=== PATIENT | male | born 1950 ===

== ENCOUNTER 2022-10-24 08:34 | Day surgery (SDC) | payer MEDICARE, OTHER, SELFPAY ==
[2022-10-09 10:28] VITALS: BMI 24.0
[2022-10-24] VITALS (12 sets, daily range): BP systolic 82–135; BP diastolic 57–80; PULSE 60–81; RESP 16–24; TEMP 35.9–36.6; O2SAT 93–99; BMI 24.0
--- NOTE | 2022-10-24 07:13 | DI.RAD.S_ITS ---
PROCEDURE: XR HIP W PEL IF DONE LT 2V INDICATIONS: JOSEE, anterior TECHNIQUE: Multiple spot fluoroscopic intraoperative images of the left hip. COMPARISON: None. FINDINGS: Spot fluoroscopic intraoperative images demonstrate appropriate positions of total hip arthroplasty hardware. IMPRESSION: Intraoperative images demonstrate appropriate positions of orthopedic hardware. Approved by: Amish Galloway M.D. on 10/24/2022 at 20:55
[2022-10-24] MEDS: VANCOMYCIN 1,000 MG/200 ML PIGGYBACK 200 MG IV (09:17)
[2022-10-24] MEDS: ACETAMINOPHEN 325 MG TABLET 975 MG PO (09:17)
[2022-10-24] MEDS: LACTATED RINGERS 1,000 ML 42 ML IV ×2 (09:21→11:29)
--- NOTE | 2022-10-24 09:57 | PM.PREOP ---
Pre-operative Note Interval Note History & Physical reviewed/Exam performed by Physician: Yes Changes to H&P: No
--- NOTE | 2022-10-24 09:57 | PM.OP.1 ---
Operative Date/Time/Diagnoses Date of procedure: 10/24/22 Time of procedure: 10:20 Pre-op diagnosis: Severe left hip OA Post-op diagnosis: same Procedure & Clinicians Procedure: Left total hip arthroplasty anterior approach Same procedure as scheduled: Yes Indications: The patient has had progressively worsening left hip pain with radiographic changes consistent with arthritis. Non-operative management has failed and the patient has requested total hip replacement. The risks, benefits and alternatives to surgery were discussed with the patient prior to proceeding. Risks discussed included, but were not limited to, failure to relieve pain, leg length discrepancy, dislocation, stiffness, infection, nerve damage, deep venous thrombosis, pulmonary embolism, stroke, coma, heart attack, permanent paralysis and , as well as the potential need for eventual revision of the prosthetic. Surgeon: Libra Oliva Research Computing Specialist: Javier Killian Anesthesia Type: Spinal Operative Notes Findings: Severe left hip osteoarthritis, adequate bone, adequate stability Closure Type: primary Specimen(s): none sent Prosthetic devices, grafts, tissues, transplants, or devices: Oliva and nephew R3 size 58, neutral poly, polar lateral stem with collar size 1, 36+ 4 cobalt chromium head, one 6.5 mm screw Estimated Blood Loss (mL): 250 Blood products transfused: none Procedure in detail: The patient was brought to the operating room. Patient was carefully positioned in the supine position. Time-out was performed and antibiotics were given. Anesthesia was induced. He was positioned in the on the table in order to allow hyperextension of the hip. The left lower extremity was prepped and draped in a standard sterile fashion. An anterior left hip incision was made 1 fingerbreadth lateral to the anterior superior iliac spine and extended distally towards the greater trochanter. Dissection was carried out through skin and subcutaneous tissues. Superficial hemostasis was achieved. The fascia over the tensor fascia andrés was defined and incised with a knife. Two Allis clamps were used to grasp the fascia. Tensor fascia andrés was retracted laterally. A gelpi retractor was placed. Dissection was carried out down along the neck. The circumflex vessels were carefully identified and cauterized with the Aqua Mantis. A PA was used throughout the procedure and was critical for intraoperative positioning and safe implantation of the components as well as assisting with hemostasis. There was good visualization of the femoral neck. A Cobra was placed superior to the neck and the gluteus fibers were carefully stripped from that superior aspect of the capsule. A 2nd retractor was placed along the inferior aspect of the neck. The rectus insertion along the capsule was partially released. A 3rd retractor that was then gently placed over the rim of the acetabulum under the rectus. Capsule was carefully incised and released from the intertrochanteric line circumferentially superior to the mid sagittal line and inferiorly to the mid sagittal line until the lesser trochanter was palpable. A tag stitch was placed both in the superior and inferior limb of the capsular insertion. Along the acetabulum capsule was also released up to the mid sagittal 12:00 position. A portion of the labrum was resected. A saw was used to perform an osteotomy at the level of the intertrochanteric line and the junction of the superior femoral neck leaving approximately 1 finger breath of residual inferior neck above the lesser trochanter. A 2nd cut was made along the femoral neck at the base of the head and a napkin ring of neck was removed. Corkscrew was placed in the femoral head and the head was removed without difficulty. Retractors were then repositioned around the acetabulum. Residual labrum was resected and additional osteophytes were removed. A reamer that was 4 mm below the templated size was placed by hand in the acetabulum and it was reamed to centralize the acetabulum. It was then reamed up to 2 under the templated size and fluoroscopy was brought in to confirm the position of the reaming and depth of reaming. I reamed 1 under the anticipated size. A trial cup was placed and noted that it was appropriately sized and fluoroscopy confirmed position and depth. The component was open and inserted without difficulty fluoroscopic imaging was used to confirm that the cup had been adequately seated and was well positioned. It was further stabilized with a single screw. Neutral poly liner was placed. The cup was tested and noted to be stable. Attention was then directed to the femur. The femur was gently hyperextended additional capsular release was performed as needed in order to allow adequate visualization of the proximal femur with elevation of the femur. Patient was placed in a hyperextended slightly adducted position with maximum external rotation. Box osteotome was used to check for any residual neck as well as sclerotic bone along the trochanter. [place] pepper was placed in the femur. Additional broaching was performed. Canal finder was used to determine the alignment of the canal and position. Size 1 broach was placed. The canal was then appropriately broached up to the templated size as long as there was adequate stability of the broach and serial advancement of the broach without excessive impingement. Specific attention was directed at avoiding varus attempting to direct the distal aspect of the broach more anteriorly and avoiding excessive anteversion. Trial reduction showed acceptable range of motion, good stability, no posterior impingement, quaker of leg length and appropriate lateral shuck. I also hyperflexed the hip and checked that there was no impingement anteriorly and there was good stability with flexion, adduction and internal rotation. Marcaine and Exparel were injected. The stem was placed without difficulty. Repeat trial reduction and x-ray showed acceptable overall position, length, and no evidence of the femoral fracture. Final head was placed. Wound was meticulously irrigated with normal saline. The hip was reduced and additional Exparel and Marcaine were injected. The capsule was closed with interrupted nonabsorbable sutures. The fascia of the tensor was closed with interrupted and running Vicryl. No drain was placed. Any tensor fascia andrés muscle that appeared to be contused or injured which was a minimal amount was carefully resected. Capsule around the tensor was injected with Exparel and Marcaine. The skin was closed with barbed stitches for the subcutaneous tissue and skin. We also used surgical glue. The wound was dressed sterilely. Brief Betadine soak was also used and was meticulously irrigated with normal saline. Patient was transferred to recovery room in satisfactory condition. Complications: none Post-operative Condition: stable Disposition: Acute Care Plan for aftercare: The patient will be maintained on a standard total hip replacement protocol with weight bearing as tolerated and anterior hip precautions. The patient will receive Aspirin and sequential compression devices for DVT prophylaxis. The patient will be discharged home when safe for the home environment.
[2022-10-24] MEDS: TRANEXAMIC ACID 1,000 MG VIAL 2000 MG INJ (10:45)
[2022-10-24] MEDS: CEFAZOLIN 2 GM/100 ML PREMIX 100 ML IV ×2 (10:50→19:03)
--- NOTE | 2022-10-24 11:11 | SUR.OPER ---
Patient supine on padded [place] table, (right arm) one arm on padded arm board at <90, (left arm) other arm padded and secured with tape across patient's chest, both legs secured in padded traction boots and positioned per surgeon, bilateral feet also wrapped in cast padding and coban before placing feet into padded traction boots, padded post at patient's groin, pressure points checked and padded.
[2022-10-24] MEDS: BUPIVACAINE LIPOSOME 266 MG/20 ML VIAL INJ (11:19)
[2022-10-24] MEDS: BUPIVACAINE 0.25% (PF) 60 ML, EPINEPHrine 0.3 MG INJ (11:20)
--- NOTE | 2022-10-24 13:04 | DI.RAD.S_ITS ---
PROCEDURE: XR HIP W PEL IF DONE LT 2V INDICATIONS: LEFT ANTERIOR HIP TECHNIQUE: AP pelvis and lateral view of the left hip acquired. COMPARISON: [facility], PAMELA, XR HIP W PEL IF DONE LT 2V, 10/24/2022, 11:52. FINDINGS: Bones: Patient is status post left total hip arthroplasty, with hardware components in expected positions. The hip joint appears congruent. The visualized bony structures appear intact. Soft tissues: Overlying postoperative changes are noted. No suspicious soft tissue densities. IMPRESSION: Status post left hip arthroplasty with expected postoperative findings. Approved by: Amish Galloway M.D. on 10/24/2022 at 20:55
[2022-10-24] MEDS: IBUPROFEN 400 MG TABLET PO ×2 (15:20→21:15)
[2022-10-24] MEDS: ACETAMINOPHEN 325 MG TABLET 650 MG PO ×2 (15:20→21:15)
--- NOTE | 2022-10-24 15:28 | PT.IIE ---
Current Diagnoses Unilateral primary osteoarthritis, left hip (10/24/22) Surgery Performed Operation Date: 10/24/22 10:45 Actual Procedures p LEFT Total Hip Arthroplasty/Anterior Approach(Left) - Libra Oliva MD Surgical History (Last Updated 10/09/22 @ 11:17 by Geno Lundberg, RN) History of AAA (abdominal aortic aneurysm) repair (11/13/18) Hx of appendectomy (~1979) Hx of bilateral cataract extraction Hx of hernia repair Hx of tonsillectomy Medical History (Last Updated 10/24/22 @ 09:03 by Ha Valencia RN) AAA (abdominal aortic aneurysm) Aneurysm of left common iliac artery CAD (coronary artery disease) CKD (chronic kidney disease) COPD (chronic obstructive pulmonary disease) CVA (cerebral vascular accident) Hearing loss History of rheumatic fever as a child HLD (hyperlipidemia) Hypernatremia Hypokalemia Mild dilation of ascending aorta Myocardial infarct Pulmonary emphysema Physical Therapy Inpatient Evaluation/Re-Eval M1 PT/OT-IP Prior Functional Status Start: 10/24/22 17:12 Freq: NEEDED Status: Active Protocol: Document 10/24/22 15:28 AB (Rec: 10/24/22 17:30 AB [id number]) Medical Review Prior Functional Status Medical History Reviewed Yes Communication able to make needs known Mobility and Gait pt stated that he is modified independent with all mobilities and ambulation without AD but occasionally uses a FWW or SPC due to hip pain Social History Household Members spouse Living Arrangements House Number of Floors (Floors) One Floor Number of Stairs To Enter/Railing? 4 steps B rails from the front of the house to enter or 3 steps B rails from the back of the house Home Environment Tub/Shower Home Equipment Front Wheel Walker,Straight Cane,Shower Seat with Backrest ,Hand Held Shower,Grab Bars Near Toilet,Grab Bars In Shower Additional Social History Comment pt has an adjustable bed spouse stated that pt can use her daughter's walk in shower if needed who lives close by M2 PT-IP Current Condition Start: 10/24/22 17:12 Freq: NEEDED Status: Active Protocol: Document 10/24/22 15:28 AB (Rec: 10/24/22 17:30 AB [email or web address]) Physical Therapy Current Condition Current Condition Evaluation Date 06/20/23 Treatment Diagnosis s/p L JOSEE anterior approach; difficulty in walking Onset Date 10/24/22 M3 PT-IP Subjective Start: 10/24/22 17:12 Freq: NEEDED Status: Active Protocol: Document 10/24/22 15:28 AB (Rec: 10/24/22 17:30 AB [email or web address]) Subjective Physical Therapy Visit Type Type Initial Evaluation Visit Start Time 15:28 Visit Stop Time 17:10 Total Visit Minutes 103 Number of SWIM INSTRUCTOR Visits 0 Physical Therapy Visit Comments Patient Comments agreeable to do PT; wants to go home Therapy Pain Assessment Pain Present Pain Present Denied Pain M4 PT-IP Mobility and Gait Start: 10/24/22 17:12 Freq: NEEDED Status: Active Protocol: Document 10/24/22 15:28 AB (Rec: 10/24/22 17:30 AB [email or web address]) PT-Bed Mobility Assessment Supine to Sit Supine to Sit Standby Assistance Sit to Supine Sit to Supine Standby Assistance PT-Transfer Assessment Sit to and From Stand Sit to and from Stand Contact Guard Assistance, Minimal Assistance,1 Person Assistance,Use of Upper Extremities Equipment Transfer Assistive Device Gait Belt,Front Wheeled Walker Orthotic/Prosthetic Devices or Brace: No Comments Mobility Comments pt in bed and spouse in room. educated pt and spouse regarding anterior hip precautions. BP in supine: 133/70. pt completed supine<>sit SBA. repeated x 2. pt used BUE to move BLE to EOB on first attempt. educated pt on techniques and repeated bed mobility again without pt lifting BLE with UE SBA. completed sit to stand min A and cues. initial LOB in standing with increase leaning to the R. instructed pt to correct. pt started to have slight uncontrolled voiding. instructed pt to sit back down . prepared urinal. pt sit to stand again CGA and use urinal min A for standing balance. assisted pt with gown/sock change and brief management. completed sit to stand again CGA and ambulated in room using FWW min A and cues. repeated cues for hip precautions as pt tends to take big steps with RLE. pt seems to have slow processing of instructions. pt also demonstrated very slow paced gait with decrease KIRSTEN. pt stated that he wants to go home and wants to do stairs. caregiver training conducted. educated spouse on use of safety belt and how to assist pt. spouse was able to put safety belt on pt after a few tries. able to assist pt with sit to stand and ambulated pt towards the stairs and completed ~ 250 ft using fWW min A and cues. pt with occasional increase posterior trunk lean with slight LOB needing cues for correction and safety. educated pt and spouse for stair climbing techniques. pt completed up/down steps using B rails min A and initially needing max cues for techniques and safety but able to perform again on 2nd set with initial cues only and has carryover afterwards. spouse was able to assist pt with stair climbing. pt ambulated back to his room using FWW min A. increase R foot dragging and pt stated that this happens when he is tired. pt went back to bed. sit to supine x 2 attempts max cues for techniques. spouse was able to cues and assist as needed. positioned pt in bed. call light and table placed within reach. Gait Assessment Gait Gait Assistance Required: Minimum Assistance,1 Person Assist Distance (Feet) 200 Able to Maintain Weight Bearing Status Yes During Gait Assistive Devices Assistive Device Gait Belt,Front Wheeled Walker Orthotic/Prosthetic Devices or Brace: No Gait Deviations General Gait Pattern Decreased Stride Length, Decreased Feet Clearance, Narrow Based Gait Factors Limiting Gait Function Factors Limiting Gait Function Decreased Activity Tolerance, Decreased Strength,Difficulty Following Directions,Limited Range of Motion,Pain,Poor Balance,Poor Safety Awareness Stair Climbing Assessment Evaluation Level of Assist On Stairs Minimal Assistance,1 Person Assistance Devices Stair Climbing Assistive Devices Left Railing,Right Railing Technique/Endurance Stair Climbing Direction Ascend and Descend Stair Climbing Technique Step to Step Number of Steps Climbed 3 Query Text: Stair Climbing Set # Repetitions (reps) 2 PT-Balance Assessment Sitting Balance and Reactions Static Sitting Balance Ability Normal Dynamic Sitting Balance Ability Good Standing Balance and Reactions Static Standing Balance Ability Fair Dynamic Standing Balance Ability Fair Device Used FWW M5 PT-IP Objective Assessments Start: 10/24/22 17:12 Freq: NEEDED Status: Active Protocol: Document 10/24/22 15:28 AB (Rec: 10/24/22 17:30 AB [email or web address]) Orientation Orientation/Cognition Level of Alertness Alert Safety Awareness Decreased Safety Awareness Memory Description Short Term Impaired Comments pt seems to have slow processing of instructions and needed repeated cues Gross Range of Motion Lower Extremity ROM Assessment Within Functional Limits Strength Lower Extremity Strength Assessment Left Impaired Hip 3+/5 Knee 4-/5 Sensation Assessment Sensation Gross Sensation WNL Muscle Tone Muscle Tone WNL Yes M6 PT-IP Treatment Start: 10/24/22 17:12 Freq: NEEDED Status: Active Protocol: Document 10/24/22 15:28 AB (Rec: 10/24/22 17:30 [email or web address]) Physical Therapy Treatment Education Education Provided Precautions,Weight Bearing Status,Post-Op Packet,Safety M7 PT-IP Assessment and Plan Start: 10/24/22 17:12 Freq: NEEDED Status: Active Protocol: Document 10/24/22 15:28 AB (Rec: 10/24/22 17:30 [email or web address]) PT Summary Assessment and Plan Potential Rehabilitation Potential Fair Status of Condition at Evaluation Evolving Summary Impairments Pain,ROM,Strength,Balance, Coordination,Cognition,Bed Mobility,Transfers,Gait, Activity Tolerance Assessment Summary Pt s/p L JOSEE anterior approach POD 0. pt wanting to go home and caregiver training conducted. spouse was able to assist pt. pt stated that he has outpt PT set up. Pt may go home when medically stable. Pt currently is not complaining of pain but expecting to have more pain later tonight or tomorrow that most possibly affecting mobility. will continue to assess progress and mobility status. Goals Bed Mobility Goal Independent Transfer Goal Independent,Front Wheeled Walker Gait Goal Independent,Front Wheel Walker Gait Distance 300 Other Goals up/down 4 steps B rails SBA Days to Meet Goals 5 Frequency of Treatment Frequency Of Treatment Twice a Day Treatment Plan Physical Therapy Treatment Plan Bed Mobility Training,Transfer Training,Gait Training, Therapeutic Exercise,Balance Retraining,Post Op Education, Discharge Planning,Hot or Cold Pack,Neuromuscular Re-ed, Coordination Retraining,Manual Therapy Precautions Anterior Hip Precautions No Hip Extension,No Hip External Rotation Weight Bearing Status Weight Bearing Status Weight Bear as Tolerated Allowed Weight Bearing Amount (enter % LLE WBAT or #) (%) Recommendations To Nursing Amount of Assist Needed 1 Person Assist Discharge Recommendations PT Discharge Recommendations Home with 27/11 Assist Available,Outpatient PT Transportation Needs at Discharge Private Vehicle
--- NOTE | 2022-10-24 15:30 | PC.NURSE ---
1415 Patient brought up from PACU to room 216. Oriented to room and call light. VSS. Denies pain. Wiggling toes and moving feet, still with decreased sensation from spinal to lower extremities. Palpable pulses. Aquacel dressing to left hip surgical site is CDI. Call light placed within reach. Patient's at bedside. Continue to monitor.
[2022-10-24] MEDS: LACTATED RINGERS 1,000 ML 100 ML IV (17:48)
[2022-10-24] MEDS: OXYCODONE IR 5 MG TABLET PO (19:03)
[2022-10-24] MEDS: ASPIRIN EC 81 MG TABLET PO (21:14)
[2022-10-24] MEDS: ATORVASTATIN 20 MG TABLET 80 MG PO (21:14)
[2022-10-24] MEDS: MELATONIN 3 MG TABLET 9 MG PO (21:14)
[2022-10-24] MEDS: TAMSULOSIN 0.4 MG CAPSULE PO (21:14)
[2022-10-24] MEDS: lisinopriL 20 MG TABLET PO (21:14)
[2022-10-24] MEDS: DOCUSATE 100 MG CAPSULE PO (21:15)
[2022-10-24] MEDS: ISOSORBIDE MONONITRATE ER 30 MG TABLET PO (21:18)
[2022-10-24 23:49] LABS: Appearance Urine UA CLEAR; Bilirubin Urine UA NEGATIVE (NEGATIVE); Color Urine UA YELLOW; Glucose Urine UA NEGATIVE (Negative); Ketones Urine UA NEGATIVE (NEGATIVE); Leukocyte Esterase Urine UA NEGATIVE (NEGATIVE); Nitrite Urine UA NEGATIVE (Negative); Occult Blood Urine UA NEGATIVE (Negative); Protein Urine UA NEGATIVE (Negative); Urobilinogen Urine UA 0.2 E.U./dL (0.2)
[2022-10-25 00:13] VITALS: BP 99/58; PULSE 70; RESP 19; TEMP 36.4; O2SAT 93
[2022-10-25 03:09] VITALS: BP 107/60; PULSE 70; RESP 16; TEMP 36.1; O2SAT 93
[2022-10-25] MEDS: IBUPROFEN 400 MG TABLET PO ×4 (03:45→15:10)
[2022-10-25] MEDS: ACETAMINOPHEN 325 MG TABLET 650 MG PO ×3 (03:45→15:10)
[2022-10-25] MEDS: CEFAZOLIN 2 GM/100 ML PREMIX 100 ML IV (03:45)
[2022-10-25] MEDS: LACTATED RINGERS 1,000 ML 100 ML IV (03:53)
--- NOTE | 2022-10-25 05:17 | PC.NURSE ---
NOC Shift Note- Patient complained of burning and frequency with urination. Urine sample sen to lab, results WNL. Will continue to monitor.
[2022-10-25 05:45] LABS: Hematocrit 28.4 % (41-53)
[2022-10-25] MEDS: DOCUSATE 100 MG CAPSULE PO (08:26)
[2022-10-25] MEDS: AMLODIPINE 5 MG TABLET PO (08:26)
[2022-10-25] MEDS: SPIRONOLACTONE 25 MG TABLET PO (08:26)
[2022-10-25] MEDS: ASPIRIN EC 81 MG TABLET PO (08:26)
[2022-10-25 08:27] VITALS: BP 101/56; PULSE 66
[2022-10-25] MEDS: lisinopriL 20 MG TABLET PO (08:27)
[2022-10-25 08:39] VITALS: BP 101/56; PULSE 66; RESP 18; TEMP 36.8; O2SAT 93
--- NOTE | 2022-10-25 08:55 | PT.IPTN ---
Current Diagnoses Unilateral primary osteoarthritis, left hip (10/24/22) Surgery Performed Operation Date: 10/24/22 10:45 Actual Procedures p LEFT Total Hip Arthroplasty/Anterior Approach(Left) - Libra Oliva MD Physical Therapy Treatment Note M2 PT-IP Current Condition Start: 10/24/22 17:12 Freq: NEEDED Status: Active Protocol: Document 10/24/22 15:28 AB (Rec: 10/24/22 17:30 AB [id number]) Physical Therapy Current Condition Current Condition Evaluation Date 10/24/22 Treatment Diagnosis s/p L JOSEE anterior approach; difficulty in walking Onset Date 10/24/22 M3 PT-IP Subjective Start: 10/24/22 17:12 Freq: NEEDED Status: Active Protocol: Document 10/25/22 09:32 TS (Rec: 10/25/22 09:55 TS [id number]) Subjective Physical Therapy Visit Type Type Treatment Note Visit Start Time 08:55 Visit Stop Time 09:25 Total Visit Minutes 30 Number of FISH SKINNING MACHINE FEEDER Visits 1 Physical Therapy Visit Comments Patient Comments Pt found resting in bed, reports he is doing well and would like to get up the toilet, agreeable to PT. M4 PT-IP Mobility and Gait Start: 10/24/22 17:12 Freq: NEEDED Status: Active Protocol: Document 10/25/22 09:32 TS (Rec: 10/25/22 09:55 TS [id number]) PT-Bed Mobility Assessment Supine to Sit Supine to Sit Standby Assistance Sit to Supine Sit to Supine Standby Assistance Scooting Scooting to Edge of Bed Standby Assistance PT-Transfer Assessment Sit to and From Stand Sit to and from Stand Standby Assistance,1 Person Assistance,Use of Upper Extremities Equipment Transfer Assistive Device Gait Belt,Front Wheeled Walker Orthotic/Prosthetic Devices or Brace: No Comments Mobility Comments Pt found resting in bed, requesting to use toilet, recalled 1/2 hip precautions prior to surgery. Supine to sit with HOB elevated SBA, pt required extra time to bring LEs over EOB. He performed sit to stand x2 SBA with FWW, good posture in standing with no retroleaning. Pt used toilet could not have BM but did urinate. He ambulated in hallway ~300' SBA with emerging step thru gait, cued for heel toe contact, no buckling or LOB. He performed stairs x9 SBA with BUE handrail assist, provided cues for step sequencing. Pt was ambualted back to room, was left in chair with call light in reach, Rn notified. Gait Assessment Gait Gait Assistance Required: Standby Assistance Distance (Feet) 300 Able to Maintain Weight Bearing Status Yes During Gait Assistive Devices Assistive Device Gait Belt,Front Wheeled Walker Orthotic/Prosthetic Devices or Brace: No Gait Deviations General Gait Pattern Decreased Stride Length, Decreased Feet Clearance, Narrow Based Gait Factors Limiting Gait Function Factors Limiting Gait Function Decreased Strength,Limited Range of Motion,Pain,Poor Balance Comments Gait Comments See mobility comments. Stair Climbing Assessment Evaluation Level of Assist On Stairs Standby Assistance Devices Stair Climbing Assistive Devices Left Railing,Right Railing Technique/Endurance Stair Climbing Direction Ascend and Descend Stair Climbing Technique Step to Step Number of Steps Climbed 3 Stair Climbing Set # Repetitions (reps) 3 Comments Stair Climbing Comments See mobility comments. PT-Balance Assessment Sitting Balance and Reactions Static Sitting Balance Ability Normal Dynamic Sitting Balance Ability Good Standing Balance and Reactions Static Standing Balance Ability Good Dynamic Standing Balance Ability Good Device Used FWW M5 PT-IP Objective Assessments Start: 10/24/22 17:12 Freq: NEEDED Status: Active Protocol: Document 10/24/22 15:28 AB (Rec: 10/24/22 17:30 AB [id number]) Orientation Orientation/Cognition Level of Alertness Alert Safety Awareness Decreased Safety Awareness Memory Description Short Term Impaired Comments pt seems to have slow processing of instructions and needed repeated cues Gross Range of Motion Lower Extremity ROM Assessment Within Functional Limits Strength Lower Extremity Strength Assessment Left Impaired Hip 3+/5 Knee 4-/5 Sensation Assessment Sensation Gross Sensation WNL Muscle Tone Muscle Tone WNL Yes M6 PT-IP Treatment Start: 10/24/22 17:12 Freq: NEEDED Status: Active Protocol: Document 10/25/22 09:32 TS (Rec: 10/25/22 09:55 TS [id number]) Physical Therapy Treatment Education Education Provided Precautions,Weight Bearing Status,Post-Op Packet,Safety M7 PT-IP Assessment and Plan Start: 10/24/22 17:12 Freq: NEEDED Status: Active Protocol: Document 10/25/22 09:32 TS (Rec: 10/25/22 09:55 TS [id number]) PT Summary Assessment and Plan Potential Rehabilitation Potential Good Summary Impairments Pain,ROM,Strength,Balance, Coordination,Cognition,Bed Mobility,Transfers,Gait, Activity Tolerance Progress Towards Goals Progressing Toward Goals Assessment Summary Pt is progressing well with his mobility. He recalled 1/2 hip precautions before mobility, could not recall external rotation. He was SBA with all mobility this session . He progressed his gait to ~ 300' SBA with emerging step thru gait, demonstrated increased heel to toe. He does require consistent cues for step sequencing with stairs x9 , improves with more reps. PT is recommending he return home with spouse for assist. Pt has outpatient PT set up for the week. Goals Bed Mobility Goal Independent Transfer Goal Independent,Front Wheeled Walker Gait Goal Independent,Front Wheel Walker Gait Distance 300 Other Goals up/down 4 steps B rails SBA Days to Meet Goals 5 Frequency of Treatment Frequency Of Treatment Twice a Day Treatment Plan Physical Therapy Treatment Plan Bed Mobility Training,Transfer Training,Gait Training, Therapeutic Exercise,Balance Retraining,Post Op Education, Discharge Planning,Hot or Cold Pack,Neuromuscular Re-ed, Coordination Retraining,Manual Therapy Precautions Anterior Hip Precautions No Hip Extension,No Hip External Rotation Weight Bearing Status Weight Bearing Status Weight Bear as Tolerated Allowed Weight Bearing Amount (enter % LLE WBAT or #) (%) Discharge Recommendations PT Discharge Recommendations Home with Assistance, Outpatient PT Transportation Needs at Discharge Private Vehicle
--- NOTE | 2022-10-25 08:57 | CM.DANOTE ---
DCP: Case received, EMR reviewed and met with patient. Introduced self and role. Was able to obtain information regarding patient's baseline activity status prior to surgery. DCP assessment completed with information currently available. Patient is a 72 year old male who admitted yesterday morning to the care of the orthopedic team. PCP: Dr. Portillo. Payer: confirmed: Medicare/[employer]. Patient came to the hospital via private vehicle for a surgical procedure. Patient had left total hip arthroplasty, anterior approach. Patient has history of severe left hip osteoarthritis. Met with patient in his room. He was sitting up in bed, pleasant, and alert. Confirmed that he resides in [place] with spouse, Kath. Notes indicate that he has 4 stairs to get into the home. He worked with P.T. yesterday. He does have a FWW for home use, but is independent otherwise. P: Patient has discharge orders for home today. Patient will work with P.T. again before discharge. Xiomara Cisse RN/Detailer Furniture Discharge Planning/Care Management CM Discharge Assessment Start: 10/25/22 08:54 Freq: Status: Active Protocol: Document 10/25/22 08:54 (Rec: 10/25/22 08:57 [id number]) Discharge Planning Assessment Assigned Chief Wellness Officer Xiomara Cisse RN/Detailer Furniture Advance Directives? No History Provided By Patient,Medical Record Prior Living Arrangements House Household Members spouse Type of transporation used prior to Drives own vehicle admit Independent with ADL's Yes Is patient alert and oriented? Yes Caregiver for Another No DME Already Rented / Owned FWW / Walker,Cane Barriers to Discharge No Discharge Plan Home Transportation Arrangement Spouse Referrals Initiated None needed Whiteboard Updated in Patient Room with Yes name and ext. # of Chief Wellness Officer Review Status In Process Next Review Type Continued Stay Review Pre-Anesthesia Assessment Start: 10/09/22 10:28 Freq: Status: Complete Protocol: Document 10/09/22 10:28 CAB (Rec: 10/09/22 11:31 CAB [id number]) Pre-Anesthesia Assessment Preferred Name Dominguez or Massimo Patient Information Reviewed Via Phone Assessment Assessment Completed With Patient Diagnostic Results BMP/CMP,CBC,EKG Comment Outside labs/EKG scanned Primary Care Provider Torey Portillo Comment PCP pre-op visit 07/11/22 w/ clearance form 06/23/22 scanned Medical Clearance Received Yes Seen Specialist in Last 12 Months Yes Specialist Seen Ski Lift Operator,Orthopedist,Other Comment Vascular-Dr. Friend - clearance form 07/12/22 scanned Primary Language Greenlandic Hair Cutter Required No Height 5 ft 9 in Weight 163 lb Body Mass Index (BMI) 24.0 Hearing Ability Hearing Impaired,Use of Hearing Aid Visual Assist Glasses Dentition Type Full- Upper & Lower Barriers to Learning Auditory Hx Anesthesia Reactions No Hx Family Anesthesia Reaction No Hx Malignant Hyperthermia No Hx Blood Transfusions No Anesthesia Review Requested Yes: Reviewed prior to scheduling-scanned to record alcohol intake current alcohol intake frequency holidays/special occasions only Smoking Status Current every day smoker Tobacco type cigarettes Smoking packs per day 5 Substance Use Type does not use Pain Present Pain Reported Musculoskeletal Symptoms Abnormal Gait,Back Pain, Difficulty Walking,Joint Pain History of Falling (Recent or History of Yes ) Comment Recent falls Patient is completely paralyzed or No completely immobile Prosthesis or Orthotic Device Cane,Front Wheel Walker Mental Status Oriented to own ability Is patient on oxygen? No Does patient have CHAUDHRY/SOB Yes Hx Sleep Apnea No Currently Taking a Beta Yaneth No Can You Climb a Flight of Stairs Without Yes SOB Hx Chest Pain No Hx SOB Yes Hx Syncope or Dizziness No Anti-Coagulant Therapy Yes: ASA 81mg-advised NOT to hold per Cardiology Has a Ski Lift Operator Yes: Visit 07/26/[address] Torres Cardiac Testing No Hx Pacemaker/ICD No Pacemaker Rep Required? No Cardiac Clearance Received Yes Comment Cardiac records scanned Diet Type At Home Regular Dysphagia No Gastrointestinal Symptoms Diarrhea Comment Hx of Colitis Chronic UTI No Urinary Catheter Present No Hx Urinary Self Catheterization No Diabetes No HgbA1C 5.5 Date 07/07/22 Hx Drug Resistant Organism No Presence of External or Internal Medical Yes: Sin eye IOLs, hearing Devices aids Received a COVID vaccine? Yes Received all doses? No Marital Status Lives With spouse Current Living Arrangements House Number of Floors (Floors) One Floor Support System Child/Children,Spouse Does the Patient Have Assistance After Yes: Daughter lives next door Surgery and will assist at DC Patient Discharge Plan Description Return Home Comment Pt advised overnight length of stay per surgeon Feels Safe in Current Environment Yes Been Physically Hurt or Threatened By a No Person in Current Environment Do you have thoughts of harming yourself None or others? Are you currently considering suicide? No Do you have a plan to hurt yourself or No Plan others? Do You Have Any Spiritual Beliefs That No May Affect Your HC Choices? Do You Have Any Cultural Practices That No May Affect Your HC Choices? Comment Mandaen Who Can We Speak to About Patient's Care Family, friends Identifying Code for Release of Patient Declines to issue Information Health Care Proxy/Next of Kin Kath () Health Care Proxy Emergency Contact Name Sarah (daughter) Emergency Contact Advance Directives? No Power of Salesperson Parts Yes Power of Salesperson Parts Name Kath () Power of Salesperson Parts PAC Instructions Durable medical equipment, Medications to take/avoid, Nasal antibiotic,No ETOH/ petroleum product on skin DOS, NPO,Pre-surgical wash,Sensory aids,Sturdy shoes/comfortable clothes,Do not bring valuables and remove jewelry
--- NOTE | 2022-10-25 11:18 | P.DS_ITS ---
History of Present Illness History of Present Illness Date Patient Seen: 10/25/22 Time Patient Seen: 08:15 Chief complaint: s/p L JOSEE Discharge Providers Provider Discharge Date: 10/25/22 Primary care physician: Torey Portillo DO Consults: 10/24/22 07:13 Consult to Anesthesiology Routine Comment: Consulting Provider: Anesthesiologist Reason for consultation: Regional block for post operative pain control 10/24/22 14:02 Consult to Discharge Planning Routine Comment: Consult to Occupational Therapy Evaluate & Treat Comment: Physician Instructions: Evaluate and treat Consult to Physical Therapy Evaluate & Treat Comment: Physician Instructions: post op JOSEE protocol Discharge provider: Kristin Hernandez PA-C Summary Hospital Course Discharge Diagnosis: s/p L JOSEE Hospital Course: Operative Date/Time/Diagnoses Date of procedure: 10/24/22 Time of procedure: 10:20 Pre-op diagnosis: Severe left hip OA Post-op diagnosis: same Procedure & Clinicians Procedure: Left total hip arthroplasty anterior approach Same procedure as scheduled: Yes Indications: The patient has had progressively worsening left hip pain with radiographic changes consistent with arthritis. Non-operative management has failed and the patient has requested total hip replacement. The risks, benefits and alternatives to surgery were discussed with the patient prior to proceeding. Risks discussed included, but were not limited to, failure to relieve pain, leg length discrepancy, dislocation, stiffness, infection, nerve damage, deep venous thrombosis, pulmonary embolism, stroke, coma, heart attack, permanent paralysis and , as well as the potential need for eventual revision of the prosthetic. Surgeon: Libra Oliva Administrative Support Coordinator: Javier Killian Anesthesia Type: Spinal Operative Notes Findings: Severe left hip osteoarthritis, adequate bone, adequate stability Closure Type: primary Specimen(s): none sent Prosthetic devices, grafts, tissues, transplants, or devices: Oliva and nephew R3 size 58, neutral poly, polar lateral stem with collar size 1, 36+ 4 cobalt chromium head, one 6.5 mm screw Estimated Blood Loss (mL): 250 Blood products transfused: none Status at Discharge Cognitive/behavioral status at discharge: oriented Functional status at discharge: uses cane/walker Overall status at discharge: patient is progressing back to baseline Exam Vital Signs (past 8 hours): - 10/25/22 08:27 10/25/22 08:39 10/25/22 07:00 Temperature 98.2 F Pulse Rate 66 66 Respiratory Rate 18 Blood Pressure 101/56 L 101/56 L Pulse Oximetry 93 Oxygen Delivery Method Room Air Oxygen Flow Rate 0 Oxygen Delivery Method Room Air Oxygen Flow Rate 0 Objective Labs 10/25/22 05:05 Labs: Laboratory Results - last 24 hr 10/24/22 10/25/22 23:45 05:05 Hgb 10.0 L Hct 28.4 L Urine Color Yellow Urine Appearance Clear Urine pH 6.0 Ur Specific [place] 1.010 Urine Protein Negative Urine Glucose (UA) Negative Urine Ketones Negative Urine Occult Blood Negative Urine Nitrate Negative Urine Bilirubin Negative Urine Urobilinogen 0.2 Ur Leukocyte Esterase Negative [facility] Medical History (Updated 10/24/22 @ 09:03 by Ha Valencia RN) AAA (abdominal aortic aneurysm) Aneurysm of left common iliac artery CAD (coronary artery disease) CKD (chronic kidney disease) COPD (chronic obstructive pulmonary disease) CVA (cerebral vascular accident) Hearing loss History of rheumatic fever as a child HLD (hyperlipidemia) Hypernatremia Hypokalemia Mild dilation of ascending aorta Myocardial infarct Pulmonary emphysema Surgical History (Updated 10/09/22 @ 11:17 by Geno Lundberg RN) History of AAA (abdominal aortic aneurysm) repair (11/13/18) Hx of appendectomy (~1979) Hx of bilateral cataract extraction Hx of hernia repair Hx of tonsillectomy Social History household members: spouse Smoking Status: Current every day smoker alcohol intake: never Discharge Assessment & Plan Assessment and Plan Assessment: Patient is progressing as expected after left total hip arthroplasty, anterior approach - postop day 1. His pain has been well controlled and he has worked with physical therapy. Plan of Treatment: Plan to discharge to home today. Continue multimodal pain regimen -patient tolerated oxycodone while admitted, prescription for this sent to pharmacy. DVT prophylaxis with Eliquis 2.5 mg b.i.d. for 6 weeks -patient has had DVT in the past. Patient to work with outpatient physical therapy. Follow up with Orthopedics 2 weeks after surgery for postop evaluation and x-rays. Discharge Plan Discharge Plan Patient Disposition: Home Provider Discharge Comment: Discharge only if he has been able to urinate. Document amount. Bladder scan if necessary. Discharge orders & Medications Discharge Orders: Discharge (Order); Ordered 10/25/22 Ordered By: Kristin Hernandez Prescriptions: New acetaminophen 325 mg Tablet 650 mg PO Q6H Qty: 120 0RF aspirin 81 mg Tablet,Delayed Release (Dr/Ec) 81 mg PO BID Qty: 84 0RF ibuprofen 400 mg Tablet 400 mg PO Q4H Qty: 120 0RF oxycodone 5 mg Tablet 5 mg PO Q4-6H PRN (Reason: Pain, Moderate (4-6)) Qty: 40 0RF Continued atorvastatin 80 mg Tablet 80 mg PO BEDTIME lisinopril 20 mg Tablet 20 mg PO BID isosorbide mononitrate 30 mg Tablet Extended Release 24 Hr 30 mg PO BEDTIME amlodipine 5 mg Tablet 5 mg PO DAILY spironolactone 25 mg Tablet 25 mg PO DAILY tamsulosin 0.4 mg Capsule 0.4 mg PO BEDTIME budesonide 3 mg Capsule,Delayed,Extend.Release 3 - 9 mg PO QAM PRN (Reason: Colitis) melatonin 10 mg Tablet 20 mg PO BEDTIME Discontinued aspirin 81 mg Tablet,Delayed Release (Dr/Ec) 81 mg PO DAILY ibuprofen 200 mg Tablet 400 mg PO BID Follow up/Referrals: Libra Oliva MD [Physician] - As previously scheduled (Follow up with Kristina Hernandez PA-C, on 11/03/2022 @ 2:00 pm at [facility] in [place].) Torey Portillo DO [Primary Care Provider] - Diet/Activity/Treatments Diet: Diet as Tolerated Activity: Weight bearing as tolerated to left leg. Anterior hip precautions. Cold/Heat Therapy: Ice to hip as needed for pain. Skin/Wound/Dressing Care Report to your healthcare provider any signs of infection, such as:: chills, fever, night sweats, unusual drainage and unusual redness Dressing: May shower. Leave Aquacel dressing in place until follow up in office. No bathing or otherwise soaking incision. Call the office if the dressing becomes saturated inside. Visit Report/Discharge Packet Instructions: DI for Hip Replacement, Oxycodone Stand Alone Forms: Patient Portal/API, Surgery Discharge Discharge Data Primary Care Provider: Torey Portillo Attending Provider: Libra Oliva Quality VTE Deep Vein Thrombosis/Pulmonary Embolism Present on Admission: No
--- NOTE | 2022-10-25 12:10 | OT.IP.EVAL ---
Current Diagnoses Unilateral primary osteoarthritis, left hip (10/24/22) Surgery Performed Operation Date: 10/24/22 10:45 Actual Procedures p LEFT Total Hip Arthroplasty/Anterior Approach(Left) - Libra Oliva MD Past Medical History (Last Updated 10/24/22 @ 09:03 by Ha Valencia RN) AAA (abdominal aortic aneurysm) Aneurysm of left common iliac artery CAD (coronary artery disease) CKD (chronic kidney disease) COPD (chronic obstructive pulmonary disease) CVA (cerebral vascular accident) Hearing loss History of rheumatic fever as a child HLD (hyperlipidemia) Hypernatremia Hypokalemia Mild dilation of ascending aorta Myocardial infarct Pulmonary emphysema Surgical History (Last Updated 10/09/22 @ 11:17 by Geno Lundberg RN) History of AAA (abdominal aortic aneurysm) repair (11/13/18) Hx of appendectomy (~1979) Hx of bilateral cataract extraction Hx of hernia repair Hx of tonsillectomy Occupational Therapy Inpatient Evaluation/Re-Eval M1 PT/OT-IP Prior Functional Status Start: 10/25/22 12:40 Freq: NEEDED Status: Active Protocol: Document 10/25/22 12:10 [facility] (Rec: 10/25/22 13:07 [facility] [id number]) Medical Review Prior Functional Status Medical History Reviewed Yes Communication able to make needs known Mobility and Gait pt stated that he is modified independent with all mobilities and ambulation without AD but occasionally uses a FWW or SPC due to hip pain Activities of Daily Living and IADL's Pt able to do his ADL needs prior but had pain. Social History Household Members spouse Living Arrangements House Number of Floors (Floors) One Floor Number of Stairs To Enter/Railing? 4 steps B rails from the front of the house to enter or 3 steps B rails from the back of the house Home Environment Tub/Shower Home Equipment Front Wheel Walker,Straight Cane,Shower Seat with Backrest ,Hand Held Shower,Grab Bars Near Toilet,Grab Bars In Shower Additional Social History Comment pt has an adjustable bed spouse stated that pt can use her daughter's walk in shower if needed who lives close by M2 OT-IP Current Condition Start: 10/25/22 12:40 Freq: Status: Active Protocol: Document 10/25/22 12:10 [facility] (Rec: 10/25/22 13:07 [facility] [id number]) Occupational Therapy Current Condition Current Condition Evaluation Date 10/25/22 Treatment Diagnosis S/p L JOSEE Diagnosis Onset Date 10/24/22 Post Operative Precautions Anterior Hip Precautions No Hip Extension,No Hip External Rotation M3 OT- IP Subjective and Pain Start: 10/25/22 12:40 Freq: Status: Active Protocol: Document 10/25/22 12:10 [facility] (Rec: 10/25/22 13:07 [facility] [id number]) OT- Subjective Occupational Therapy Visit Type Type Initial Evaluation Visit Start Time 12:10 Visit Stop Time 12:35 Total Visit Minutes 25 Occupational Therapy Visit Comments Patient Comments Pt up walking in the hallway with his when coming to see pt for OT eval. Patient/Caregiver Goals TO go home. OT Pain Assessment Pain When Pain Assessed At Rest Pain Present Pain Present Denied Pain M4 OT- IP ADL's Start: 10/25/22 12:40 Freq: Status: Active Protocol: Document 10/25/22 12:10 [facility] (Rec: 10/25/22 13:07 [facility] [id number]) OT [id number]-Sllvrwm General Evaluation Self-Feeding Ability Independent OT ADL-Grooming Comments OT Grooming Comments Not performed. OT ADL-Oral Care Comments Oral Care Comments Not performed. OT ADL-Dressing General Eval Lower Body Dressing Ability Standby Assistance Comments OT Dressing Comments Pt able to lean forwards without externally rotated his leg out by bending forwards and able to follow his precautions. OT ADL-Toileting Comments OT Toileting Comments Not performed. OT ADL-Bathing Comments OT Bathing Comments Not performed M5 OT- IP IADL's Start: 10/25/22 12:40 Freq: Status: Active Protocol: Document 10/25/22 12:10 [facility] (Rec: 10/25/22 13:07 [facility] [id number]) OT-Instrumental Activities of Daily Living Home Safety Awareness Awareness of Need for Assistance at Home Good Awareness Ability to Problem Solve Emergency Able to Problem Solve Situations Home Safety Comments Pt has a supportive to be able to assist with his needs . M6 OT- IP Functional Cognition Start: 10/25/22 12:40 Freq: Status: Active Protocol: Document 10/25/22 12:10 [facility] (Rec: 10/25/22 13:07 [facility] [id number]) Cognitive Factors Limiting Selfcare Function Cognitive Ability Level of Alertness Alert Patient Orientation Name,Age,Birthday,Month,Date, Year,Day of Week,Place, Situation Attention Span Ability Capable of Focused Attention, Capable of Sustained Attention Safety Awareness Decreased Ability to Apply Precautions Cognitive Comments Cognitive Assessment Comments Pt is intact but needing occasional reminders not to take too big on a step with his right leg. OT- Vision and Hearing OT- Hearing Assessment OT- Hearing Assessment WFL OT- Vision Assessment Visual Acuity Glasses All The Time M7 OT- IP Mobility and Balance Start: 10/25/22 12:40 Freq: Status: Active Protocol: Document 10/25/22 12:10 [facility] (Rec: 10/25/22 13:07 [facility] [id number]) OT-Transfer Assessment Sit to and From Stand Sit to and from Stand Standby Assistance Transfers Transfer Ability Standby Assistance Technique Transfer Destination Chair Comments Mobility Comments SBA with mobility need with FWW. OT- Balance Assessment Sitting Balance and Reactions Static Sitting Balance Ability Normal Dynamic Sitting Balance Ability Normal Standing Balance and Reactions Static Standing Balance Ability Good Dynamic Standing Balance Ability Good M9 OT- IP Assessment and Plan Start: 10/25/22 12:40 Freq: Status: Active Protocol: Document 10/25/22 12:10 [facility] (Rec: 10/25/22 13:07 [facility] [id number]) OT Summary Assessment and Plan Potential Rehabilitation Potential Good Analytic Complexity at Evaluation Low Summary OT Impairments Balance,Functional Mobility, Dressing,Toileting,Bathing, Shower Transfers Progress Towards Goals Progressing Toward Goals Assessment Summary Pt Low complexity and doing well and mainly just having issues not with urination. Pt has a supportive to be able to assist with his needs. Pt to go home when medically stable. Goals Dressing Goal Independent Toileting Goal Independent Bathing Goal Independent Toilet Transfer Goal Independent Shower Transfer Goal Independent Days to Meet Goals 3 Frequency of Treatment Frequency Of Treatment Once a Day Treatment Plan OT Treatment Plan ADL Training,Functional Mobility,Patient/Family Education,Discharge Planning Discharge Recommendations OT Discharge Recommendations Home with Assistance, Outpatient PT Transportation Needs at Discharge Private Vehicle
== END 2022-10-25 15:45 | disposition home or self-care (01) ==
LOC: OR 08:37 → AC 08:38
PROVIDERS: PCP Student in an Organized Health Care Education/Training Program; Referring Provider Orthopaedic Surgery; Visit Provider Orthopaedic Surgery
PROC: (CPT 27130; principal; 2022-10-24 10:45)
DX: M16.12 Unilateral primary osteoarthritis, left hip (principal)
CPT/HCPCS: 27130; 36415; 73502; 76000; 81003; 85014; 85018; 97116; 97162; 97165; 97530; C1776; C9290; J0171; J0690; J2405; J2704